=== PATIENT | female | born 1935 | race Two or more races ===

== ENCOUNTER 2019-12-10 22:40 | Inpatient (IN) | payer MEDICARE, OTHER ==
[~2019-12-10] VITALS: Ht 152.4 cm; Wt 62.1 kg
--- NOTE | 2019-12-10 22:50 | NUR ---
PT AAOX3. MARKO FROM [facility] FOR PSYCH EVAL. PT AMBULATORY WITH STEADY GAIT. PER PA WAS TOLD PT WAS WONDERING AROUND. PLACED IN GOWN, ON MONITOR , AND PULSE OX. VSS. NO ACUTE DISTRESS NOTED. AWAITING MD FOR EVAL.
--- NOTE | 2019-12-10 23:08 | NUR ---
PATIENT CAME TO ER FROM [facility] FOR PSYCH EVALUATION. PATIENT IS AAOX2. NO SOB. BREATHING EVENLY AND UNLABORED ON ROOM AIR. CONNECTED TO MONITOR.
--- NOTE | 2019-12-10 23:16 | NUR ---
HEAD OF HUMAN RESOURCES AT BEDSIDE FOR LABS AND URINE.
[2019-12-10 23:17] LABS: BASOPHILS # (AUTO) 0.1 /CMM (0.0-0.2); BASOPHILS % (AUTO) 0.9 % (0.0-2.0); EOSINOPHILS % (AUTO) 1.7 % (0.0-6.0); HEMATOCRIT 30 % (33-45); HEMOGLOBIN 10.4 g/dL (11.5-14.8); LYMPHOCYTES # (AUTO) 1.3 /CMM (0.8-4.8); LYMPHOCYTES % (AUTO) 21.5 % (20.0-44.0); MEAN CORPUSCULAR HGB CONC 34 g/dl (31.0-36.0); MEAN CORPUSCULAR VOLUME 94 fL (82-100); MONOCYTES # (AUTO) 0.6 /CMM (0.1-1.30); MONOCYTES % (AUTO) 10.1 % (2.0-12.0); NEUTROPHILS % (AUTO) 65.8 % (43.0-81.0); PLATELET COUNT (AUTO) 156 /CMM (150-450); RED BLOOD CELL COUNT(AUTO) 3.23 MIL/uL (4.0-5.2)
[2019-12-10 23:20] LABS: APPEARANCE,URINE Clear (CLEAR); BILIRUBIN,URINE Negative (NEGATIVE); BLOOD, URINE Trace-intact Ery/uL (NEGATIVE); COLOR,URINE Yellow (YELLOW); KETONES,URINE Negative (NEGATIVE); LEUKOCYTE ESTERASE ,URINE Negative (NEGATIVE); NITRITE, URINE Negative (NEGATIVE); PROTEIN,URINE >=300 mg/dl (NEGATIVE); UGLUCOSE 100 MG/DL mg/dL (NEGATIVE)
[2019-12-10 23:26] LABS: CALCIUM, SERUM 8.9 mg/dL (8.5-10.1); CARBON DIOXIDE 28 mmol/L (21-32); CHLORIDE 101 mmol/L (98-107); GLUCOSE 110 mg/dL (74-106); POTASSIUM 4.7 mmol/L (3.5-5.1); SODIUM SERUM 136 mmol/L (136-145); UREA NITROGEN, BLOOD 27 mg/dL (7-18)
[2019-12-10 23:31] LABS: ACETAMINOPHEN 3 ug/ml (10-30); ALANINE AMINOTRANSFERASE 26 U/L (12-78); ALBUMIN 2.7 g/dL (3.4-5.0); ALCOHOL, BLOOD < 3 mg/dL (0-0); ALKALINE PHOSPHATASE 60 U/L (46-116); ASPARTATE AMINOTRANSFERASE 32 U/L (15-37); BILIRUBIN,DIRECT 0.1 mg/dL (0.0-0.2); BILIRUBIN,TOTAL 0.3 mg/dL (0.2-1.0); TOTAL PROTEIN, SERUM 5.8 g/dL (6.4-8.2)
[2019-12-10 23:32] LABS: SALICYLATE 0.6 mg/dL (2.8-20.0)
[2019-12-10 23:34] LABS: BACTERIA,URINE Few /HPF (None Seen); RBC,URINE 0-2 /HPF (0-2); SQUAMOUS EPITHELIAL CELL,UR Few /HPF (None Seen)
[2019-12-10] MEDS ORDERED: SENN-261 PO (23:55)
[2019-12-10] MEDS ORDERED: FURO20TA4 PO (23:55)
[2019-12-10] MEDS ORDERED: TRAZ-182 PO (23:55)
[2019-12-10] MEDS ORDERED: APIX2.5T PO (23:55)
[2019-12-10] MEDS ORDERED: DIPH50CA4 PO (23:55)
[2019-12-10] MEDS ORDERED: OMEP40CA13 PO (23:55)
[2019-12-10] MEDS ORDERED: MULT1TAB73 PO (23:55)
[2019-12-10] MEDS ORDERED: DOCU100C36 PO (23:55)
[2019-12-10] MEDS ORDERED: ISOS60TA4 PO (23:55)
[2019-12-10] MEDS ORDERED: SITA50TA PO (23:55)
[2019-12-10] MEDS ORDERED: FOLI5VIA2 PO (23:55)
[2019-12-10] MEDS ORDERED: CHOL500062 PO (23:55)
[2019-12-10] MEDS ORDERED: SPIR25TA6 PO (23:55)
[2019-12-10] MEDS ORDERED: CARV25TA2 PO (23:55)
[2019-12-10] MEDS ORDERED: SUCR1TAB PO (23:55)
[2019-12-10] MEDS ORDERED: MAGN400T8 PO (23:55)
[2019-12-10] MEDS ORDERED: FAMO20TA8 PO (23:55)
--- NOTE | 2019-12-10 23:56 | NUR ---
Patient is resting comfortably in bed. Easily aroused. VSS.
--- NOTE | 2019-12-11 00:02 | NUR ---
CALLED ART DRIFT MINER FOR EVALUATION
[2019-12-11] MEDS ORDERED: CLONIDINE HCL 0.1 MG TABLET ONE (00:21)
--- NOTE | 2019-12-11 00:35 | NUR ---
ART CUSTOMER COMPLAINT CLERK AT BEDSIDE
[2019-12-11] MEDS ORDERED: CLONIDINE HCL 0.1 MG TABLET PO ONE (01:00)
--- NOTE | 2019-12-11 02:33 | NUR ---
PATIENT IS ASLEEP. EASILY AROUSABLE THROUGH TACTILE AND VERBAL STIMULI. BREATHING EVENLY AND UNLABORED ON ROOM AIR. CONNECTED TO MONITOR. SITTER AT BEDSIDE.
--- NOTE | 2019-12-11 04:25 | NUR ---
Monique tovar in EDM - 12/11/19 at 0647 by TRENT ACCEPTED BY DR. ROBERT KHAN MD, DR. JULISA GUNDERSON MD #[phone] EXT. [phone] LOOK FOR CHARGE NURSE BELEM
--- NOTE | 2019-12-11 05:46 | NUR ---
NOTED HYPERTENSION. AWARE
[2019-12-11] MEDS ORDERED: hydrALAZINE HCL 50 MG TABLET ONE (06:04)
--- NOTE | 2019-12-11 06:19 | NUR ---
REPORT GIVEN TO NURSE FOR GERMAN
[2019-12-11] MEDS ORDERED: hydrALAZINE HCL 50 MG TABLET PO SCH (06:30)
--- NOTE | 2019-12-11 06:44 | NUR ---
RECEIVED THIS 84 FEMALE FROM ER. PATIENT WAS PUT ON HOLD DUE TO GRAVELY DISABLE, WONDERING AROUND AT [facility] . PATIENT IS ALERT, ORIENTED X3 ON FACE TO FACE ASSESSMENT PATIENT DENIES ANY SI/HI AT THIS TIME, VITAL SIGN STABLE ON ROOM AIR SKIN IS INTACT PATENT . SIDE RAILS ARE UP FOR SAFETY, WILL GIVE REPORT TO ON COMING NURSE TO FINISH THE ADMISSIONS AND CONTINUES OF CARE.
[2019-12-11] MEDS ORDERED: MAG HYDROX/AL HYDROX/SIMETH 30 ML UDC PO PRN (07:00)
[2019-12-11] MEDS ORDERED: ACETAMINOPHEN 325 MG TABLET PO PRN (07:00)
[2019-12-11] MEDS ORDERED: MAGNESIUM HYDROXIDE 30 ML UDC PO PRN (07:00)
[2019-12-11] MEDS ORDERED: TEMAZEPAM 7.5 MG CAPSULE PO PRN (07:00)
[2019-12-11] MEDS ORDERED: BLOOD SUGAR DIAGNOSTIC 1 EACH STRIP IN ONE (07:00)
[2019-12-11] MEDS ORDERED: LORAZEPAM 0.5 MG TABLET PO PRN (07:00)
[2019-12-11 08:00] VITALS: BP 142/54
--- NOTE | 2019-12-11 08:00 | NUR ---
GPS/RN-NOTES RECEIVED PATIENT LAYING IN BED AWAKE,ALERT TO NAME ONLY CALM ,NO ACUTE DISTRESS NOTED. PATIENT COOPERATIVE DURING FACE TO FACE INTERVIEW. PATIENT AMBULATORY STEADY GAIT. CALLED SON KAMILAH MENJIVAR @ [phone] AND MADE AWARE OF THE ADMISSION.PATIENT WAS ORIENTED IN THE UNIT AND UNIT POLICIES. CONTRABAND DONE . ALL NEEDS ATTENDED AND ANTICIPATED. WILL CONT. MONITORING Q15 MINS. FOR SAFETY AND BEHAVIOR.
--- NOTE | 2019-12-11 10:30 | NUR ---
GPS/RN-NOTES GENETIC TECHNOLOGIST HERRERA MADE AWARE OF PATIENT ADMISSION AND AWARE OF MEDICATIONS NEED TO RECONCILE.
--- NOTE | 2019-12-11 11:10 | NUR ---
FACILITY CONTACT: SW contacted [facility] Address: [address] [place] [address] and spoke with Forest wishkicker ashley who stated pt is able to return once stable for discharge.
--- NOTE | 2019-12-11 13:29 | NUR ---
FAMILY CONTACT: SW contacted pts son Derek [phone] for collateral information and discharge/treatment planning. Son states that pt has been having paranoid delusions about her neighbors wanting to kill her for a few weeks now and states that 4 days ago she was put on Abilify but it has not worked. He states that pt has a neighbor who is heard of hearing and he listens to the TV very loudly and states pt believes that he is talking abut her and plotting to harm her. Son states that pt sees Dr. Deepak Vale Address: [address], [place] [address] as her primary care physician and pt recently began seeing Dr. Jenkins at [facility] Address: [address], [place] [address] who prescribed her with Abilify. Son states he wishes to speak to the psychiatrist to see if there is an alternative medication he can give pt that works faster than Abilify. Son states that he wishes for pt to return to [facility] Address: [address] [place] [address] .
[2019-12-11 16:00] VITALS: BP 152/92
--- NOTE | 2019-12-11 18:53 | NUR ---
GPS/RN-NOTES PATIENT SLEEPING AT THIS TIME,NO ACUTE DISTRESS NOTED. NEED URINE COLLECTION FOR URINALYSIS. WILL ENDORSE TO INCOMING NURSE FOR COLLECTION AND CONTINUITY OF CARE.
--- NOTE | 2019-12-11 19:56 | NUR ---
Patient in bed, awake, alert and oriented. Received report about urine collection. STRATEGIC ANALYST informed. Will continue to monitor.
[2019-12-11 20:28] VITALS: BP 142/68
[2019-12-11] MEDS: RIVASTIGMINE TARTRATE 1.5 MG CAPSULE PO SCH (21:13)
[2019-12-11] MEDS: risperiDONE 0.25 MG TABLET PO SCH (21:13)
[2019-12-11] MEDS: SUCRALFATE 1 G TABLET PO SCH (21:13)
[2019-12-12 07:03] LABS: BASOPHILS % (AUTO) 0.8 % (0.0-2.0); EOSINOPHILS % (AUTO) 1.9 % (0.0-6.0); HEMATOCRIT 29 % (33-45); HEMOGLOBIN 10.3 g/dL (11.5-14.8); LYMPHOCYTES # (AUTO) 0.9 /CMM (0.8-4.8); LYMPHOCYTES % (AUTO) 16.3 % (20.0-44.0); MEAN CORPUSCULAR HGB CONC 35 g/dl (31.0-36.0); MEAN CORPUSCULAR VOLUME 93 fL (82-100); MONOCYTES # (AUTO) 0.5 /CMM (0.1-1.30); MONOCYTES % (AUTO) 9.5 % (2.0-12.0); NEUTROPHILS # (AUTO) 3.9 /CMM (1.8-8.9); NEUTROPHILS % (AUTO) 71.5 % (43.0-81.0); PLATELET COUNT (AUTO) 131 /CMM (150-450); RED BLOOD CELL COUNT(AUTO) 3.13 MIL/uL (4.0-5.2); WHITE BLOOD COUNT (AUTO) 5.5 K/uL (4.3-11.0)
[2019-12-12 07:10] LABS: ALANINE AMINOTRANSFERASE 23 U/L (12-78); ALBUMIN 2.2 g/dL (3.4-5.0); ALKALINE PHOSPHATASE 43 U/L (46-116); ASPARTATE AMINOTRANSFERASE 31 U/L (15-37); BILIRUBIN,TOTAL 0.3 mg/dL (0.2-1.0); CALCIUM, SERUM 8.9 mg/dL (8.5-10.1); CARBON DIOXIDE 28 mmol/L (21-32); CHLORIDE 106 mmol/L (98-107); CREATININE 1.4 mg/dL (0.6-1.3); GLUCOSE 91 mg/dL (74-106); MAGNESIUM 2.1 mg/dL (1.8-2.4); PHOSPHORUS 3.6 mg/dL (2.5-4.9); SODIUM SERUM 140 mmol/L (136-145); UREA NITROGEN, BLOOD 25 mg/dL (7-18)
[2019-12-12 07:13] LABS: CHOLESTEROL 188 mg/dL (<200); CREATINE KINASE, TOTAL 153 U/L (26-192); HDL CHOLESTEROL 64 mg/dL (40-60); LDL 96 mg/dL (0-99); TRIGLYCERIDES 202 mg/dL (30-150)
[2019-12-12 08:00] VITALS: BP 147/55
[2019-12-12] MEDS: APIXABAN 2.5 MG TABLET PO SCH ×2 (08:54→16:21)
[2019-12-12] MEDS: CHOLECALCIFEROL 1,000 UNIT TABLET (VIT D3) PO SCH (08:54)
[2019-12-12] MEDS: RIVASTIGMINE TARTRATE 1.5 MG CAPSULE PO SCH ×2 (08:54→20:32)
[2019-12-12] MEDS: SPIRONOLACTONE 25 MG TABLET PO SCH (08:54)
[2019-12-12] MEDS: SENNOSIDES 8.6 MG TABLET PO SCH ×2 (08:55→16:20)
[2019-12-12] MEDS: DOCUSATE SODIUM 100 MG CAPSULE PO SCH ×2 (08:55→16:21)
[2019-12-12] MEDS: MULTIVITAMINS,THERAGRAN 1 UDTAB TABLET PO SCH (08:55)
[2019-12-12] MEDS: FUROSEMIDE 20 MG TABLET PO SCH ×2 (08:55→16:20)
[2019-12-12] MEDS: CARVEDILOL 12.5 MG TABLET PO SCH ×2 (08:55→16:21)
[2019-12-12] MEDS: MAGNESIUM OXIDE 400 MG TABLET PO SCH (08:55)
[2019-12-12] MEDS: FOLIC ACID 1 MG TABLET PO SCH (08:55)
[2019-12-12] MEDS: LINAGLIPTIN 5 MG TABLET PO SCH (08:55)
[2019-12-12] MEDS: SUCRALFATE 1 G TABLET PO SCH ×4 (08:55→20:32)
[2019-12-12] MEDS: risperiDONE 0.25 MG TABLET PO SCH ×2 (08:55→20:32)
[2019-12-12] MEDS: ISOSORBIDE MONONITRATE (30MG) 30 MG TAB.SR.24H PO SCH ×2 (08:55→16:20)
[2019-12-12] MEDS: PANTOPRAZOLE 40 MG TABLET.DR PO SCH (08:57)
[2019-12-12] MEDS ORDERED: FAMOTIDINE (20 MG) 20 MG TABLET PO SCH (09:00)
--- NOTE | 2019-12-12 09:20 | NUR ---
INITIAL DISCHARGE PLAN: Pt will return to [facility] Address: [address] [place] [address] . CORI spoke with Forest urturn who stated pt is able to return once stable for discharge. Per son Derek ([phone]) he wishes for pt to return to [facility]. CORI will help form a safe and proper discharge in collaboration with .
--- NOTE | 2019-12-12 10:42 | NUR ---
PCP CONTACT: CORI received a kate from Dr. Vale [phone] stating that before pt was admitted into [facility] she was at [facility], he states that [facility] has accepted to take pt back so long as she is hospitalized for at least 7 days with a negative COVID-19 test. CORI returned the call and left a voicemail for callback to discuss pts discharge plan.
--- NOTE | 2019-12-12 10:57 | NUR ---
SNF REFERRAL: faxed referral to [facility] ([facility]) [address] [place] [address] P: [phone] for review.
--- NOTE | 2019-12-12 11:15 | NUR ---
PCP CONTACT: SW received a call from Dr. Vale [phone] stating that he spoke with CARLOS Odom at [facility] who confirmed they would take pt, however are not sure when they will be able to accept new pts due to current COVID-19 restrictions. SW stated she would follow up with facility regarding bed availability.
--- NOTE | 2019-12-12 11:41 | NUR ---
Home Health Contact: SW received a call from [facility] ([phone]) from [facility] who stated that they will continue services for the pt upon discharge. She asked for pts information to be faxed to [phone] at the time of discharge.
--- NOTE | 2019-12-12 11:50 | NUR ---
SNF REFERRAL: SW received a call from Mitesh, rehabilitation program coordinator at [facility] ([facility]) [address] [place] [address] P: [phone] stating that pt has been accepted to the facility but is unsure of when a bed will be available.
--- NOTE | 2019-12-12 14:39 | NUR ---
INDIVIDUAL COUNSELING: SW attempted to meet with pt to discuss her fears and paranoid delusions. Pt began crying stating she did not want to return to the assisted living due to the neighbors trying to kill her. SW informed her that pt has been accepted at [facility] and pts affect became happier. Pt then stated that she was thankful and happy that SW was helping her.
[2019-12-12] MEDS: hydrALAZINE HCL 25 MG TABLET PO PRN (15:38)
[2019-12-12 16:00] VITALS: BP 160/70
[2019-12-12 17:02] VITALS: BP 135/71
[2019-12-12 20:31] VITALS: BP 157/67
[2019-12-13 05:06] LABS: PTH, INTACT 59 pg/mL (15-65)
[2019-12-13 08:00] VITALS: BP 152/80
[2019-12-13 08:06] LABS: *SPE ALBUMIN 2.2 g/dL (2.9-4.4); *SPE ALPHA-1-GLOBULIN 0.2 g/dL (0.0-0.4); *SPE ALPHA-2-GLOBULIN 0.8 g/dL (0.4-1.0); *SPE BETA GLOBULIN 0.7 g/dL (0.7-1.3); *SPE GLOBULIN, TOTAL 2.1 g/dL (2.2-3.9); *SPE M-SPIKE Not Observed g/dL (Not Observed); *SPEGAMMA GLOBULIN 0.4 g/dL (0.4-1.8)
[2019-12-13] MEDS: CHOLECALCIFEROL 1,000 UNIT TABLET (VIT D3) PO SCH (08:48)
[2019-12-13] MEDS: FOLIC ACID 1 MG TABLET PO SCH (08:48)
[2019-12-13] MEDS: LINAGLIPTIN 5 MG TABLET PO SCH (08:48)
[2019-12-13] MEDS: PANTOPRAZOLE 40 MG TABLET.DR PO SCH (08:48)
[2019-12-13] MEDS: RIVASTIGMINE TARTRATE 1.5 MG CAPSULE PO SCH ×2 (08:48→20:40)
[2019-12-13] MEDS: SENNOSIDES 8.6 MG TABLET PO SCH ×2 (08:48→16:29)
[2019-12-13] MEDS: DOCUSATE SODIUM 100 MG CAPSULE PO SCH ×2 (08:48→16:29)
[2019-12-13] MEDS: SPIRONOLACTONE 25 MG TABLET PO SCH (08:49)
[2019-12-13] MEDS: MULTIVITAMINS,THERAGRAN 1 UDTAB TABLET PO SCH (08:49)
[2019-12-13] MEDS: risperiDONE 0.25 MG TABLET PO SCH ×2 (08:49→20:21)
[2019-12-13] MEDS: FUROSEMIDE 20 MG TABLET PO SCH ×2 (08:49→16:29)
[2019-12-13] MEDS: MAGNESIUM OXIDE 400 MG TABLET PO SCH (08:49)
[2019-12-13] MEDS: SUCRALFATE 1 G TABLET PO SCH ×4 (08:49→20:21)
[2019-12-13] MEDS: CARVEDILOL 12.5 MG TABLET PO SCH ×2 (08:50→16:29)
[2019-12-13] MEDS: ISOSORBIDE MONONITRATE (30MG) 30 MG TAB.SR.24H PO SCH ×2 (08:51→16:30)
[2019-12-13] MEDS: APIXABAN 2.5 MG TABLET PO SCH ×2 (08:52→16:20)
[2019-12-13 15:56] VITALS: BP 182/62
[2019-12-13] MEDS: hydrALAZINE HCL 25 MG TABLET PO PRN ×2 (16:31→23:49)
[2019-12-13 18:41] VITALS: BP 164/77
[2019-12-13 20:00] VITALS: BP 195/62
[2019-12-13 20:11] VITALS: BP 195/62
[2019-12-13] MEDS ORDERED: CLONIDINE HCL 0.1 MG TABLET PO PRN (21:00)
[2019-12-13 21:56] VITALS: BP 168/64
[2019-12-14 03:33] VITALS: BP 147/56
--- NOTE | 2019-12-14 06:11 | NUR ---
RN NOTES PATIENT REFUSED URINE COLLECTION, EXPLAINED TO PATIENT RATIONALE, PATIENT STILL REFUSED
[2019-12-14 08:00] VITALS: BP 161/60
[2019-12-14] MEDS: FOLIC ACID 1 MG TABLET PO SCH (08:36)
[2019-12-14] MEDS: MULTIVITAMINS,THERAGRAN 1 UDTAB TABLET PO SCH (08:36)
[2019-12-14] MEDS: SUCRALFATE 1 G TABLET PO SCH ×4 (08:36→21:25)
[2019-12-14] MEDS: SENNOSIDES 8.6 MG TABLET PO SCH ×2 (08:36→16:33)
[2019-12-14] MEDS: CHOLECALCIFEROL 1,000 UNIT TABLET (VIT D3) PO SCH (08:36)
[2019-12-14] MEDS: FUROSEMIDE 20 MG TABLET PO SCH ×2 (08:37→16:33)
[2019-12-14] MEDS: PANTOPRAZOLE 40 MG TABLET.DR PO SCH (08:37)
[2019-12-14] MEDS: MAGNESIUM OXIDE 400 MG TABLET PO SCH (08:37)
[2019-12-14] MEDS: SPIRONOLACTONE 25 MG TABLET PO SCH (08:37)
[2019-12-14] MEDS: LINAGLIPTIN 5 MG TABLET PO SCH (08:37)
[2019-12-14] MEDS: ISOSORBIDE MONONITRATE (30MG) 30 MG TAB.SR.24H PO SCH ×2 (08:37→16:34)
[2019-12-14] MEDS: DOCUSATE SODIUM 100 MG CAPSULE PO SCH ×2 (08:37→16:33)
[2019-12-14] MEDS: RIVASTIGMINE TARTRATE 1.5 MG CAPSULE PO SCH ×2 (08:37→21:24)
[2019-12-14] MEDS: CARVEDILOL 12.5 MG TABLET PO SCH ×2 (08:38→16:33)
[2019-12-14] MEDS: risperiDONE 0.25 MG TABLET PO SCH (08:39)
[2019-12-14] MEDS: APIXABAN 2.5 MG TABLET PO SCH ×2 (08:40→16:32)
[2019-12-14 16:00] VITALS: BP 139/64
[2019-12-14 20:00] VITALS: BP 195/60
[2019-12-14] MEDS: hydrALAZINE HCL 25 MG TABLET PO PRN (20:37)
--- NOTE | 2019-12-14 21:20 | NUR ---
GPS RN NOTES: RECHECKED PTS BLOOD PRESSURE AND HR WITH RESULTS 157/54, HR 66, OXY 97%, RESP 18, TEMPT. 98.8. NO S/S OF PAIN AT THIS TIME. BREATHING EVEN AND UNLABORED. CONTINUE TO MONITOR. Addendum: 12/14/19 at 2346 by PRIYA MAY RN BP 154/54, HR 66, OXY 97% ROOM AIR, RESP 18, TEMP 98.8
[2019-12-14 21:22] VITALS: BP 154/54
[2019-12-14] MEDS: risperiDONE 1 MG TABLET PO SCH (22:03)
[2019-12-15 06:43] LABS: BASOPHILS % (AUTO) 0.9 % (0.0-2.0); EOSINOPHILS % (AUTO) 2.6 % (0.0-6.0); HEMATOCRIT 27 % (33-45); HEMOGLOBIN 9.2 g/dL (11.5-14.8); LYMPHOCYTES % (AUTO) 20.2 % (20.0-44.0); MEAN CORPUSCULAR HGB CONC 35 g/dl (31.0-36.0); MEAN CORPUSCULAR VOLUME 92 fL (82-100); MONOCYTES # (AUTO) 0.6 /CMM (0.1-1.30); MONOCYTES % (AUTO) 11.2 % (2.0-12.0); NEUTROPHILS # (AUTO) 3.3 /CMM (1.8-8.9); NEUTROPHILS % (AUTO) 65.1 % (43.0-81.0); PLATELET COUNT (AUTO) 112 /CMM (150-450); RED BLOOD CELL COUNT(AUTO) 2.89 MIL/uL (4.0-5.2); WHITE BLOOD COUNT (AUTO) 5.1 K/uL (4.3-11.0)
[2019-12-15 07:02] LABS: CALCIUM, SERUM 8.2 mg/dL (8.5-10.1); CARBON DIOXIDE 26 mmol/L (21-32); CHLORIDE 105 mmol/L (98-107); CREATININE 1.4 mg/dL (0.6-1.3); GLUCOSE 97 mg/dL (74-106); MAGNESIUM 1.7 mg/dL (1.8-2.4); PHOSPHORUS 4.6 mg/dL (2.5-4.9); POTASSIUM 3.8 mmol/L (3.5-5.1); SODIUM SERUM 137 mmol/L (136-145); UREA NITROGEN, BLOOD 31 mg/dL (7-18)
[2019-12-15 08:00] VITALS: BP 153/76
[2019-12-15] MEDS: APIXABAN 2.5 MG TABLET PO SCH ×2 (08:09→17:12)
[2019-12-15] MEDS: MAGNESIUM OXIDE 400 MG TABLET PO SCH (08:10)
[2019-12-15] MEDS: risperiDONE 0.25 MG TABLET PO SCH (08:11)
[2019-12-15] MEDS: PANTOPRAZOLE 40 MG TABLET.DR PO SCH (08:11)
[2019-12-15] MEDS: DOCUSATE SODIUM 100 MG CAPSULE PO SCH ×2 (08:11→17:12)
[2019-12-15] MEDS: CHOLECALCIFEROL 1,000 UNIT TABLET (VIT D3) PO SCH (08:11)
[2019-12-15] MEDS: RIVASTIGMINE TARTRATE 1.5 MG CAPSULE PO SCH ×2 (08:11→20:28)
[2019-12-15] MEDS: LINAGLIPTIN 5 MG TABLET PO SCH (08:14)
[2019-12-15] MEDS: ISOSORBIDE MONONITRATE (30MG) 30 MG TAB.SR.24H PO SCH ×2 (08:14→17:08)
[2019-12-15] MEDS: CARVEDILOL 12.5 MG TABLET PO SCH ×2 (08:15→17:08)
[2019-12-15] MEDS: FOLIC ACID 1 MG TABLET PO SCH (08:15)
[2019-12-15] MEDS: SPIRONOLACTONE 25 MG TABLET PO SCH (08:15)
[2019-12-15] MEDS: MULTIVITAMINS,THERAGRAN 1 UDTAB TABLET PO SCH (08:15)
[2019-12-15] MEDS: FUROSEMIDE 20 MG TABLET PO SCH ×2 (08:16→17:12)
[2019-12-15] MEDS: SUCRALFATE 1 G TABLET PO SCH ×4 (08:16→20:28)
[2019-12-15] MEDS: SENNOSIDES 8.6 MG TABLET PO SCH ×2 (08:16→17:14)
--- NOTE | 2019-12-15 09:51 | NUR ---
GPS RN NOTE: PATIENT IN BED LYING AWAKE, COMPLIANT WITH MEDICATIONS NO S/S DISTRESS NOTED PT CALM NO ACUTE DISTRESS NOTED. ALL NEEDS ATTENDED AND ANTICIPATED. WILL CONTINUE MONITORING Q15 MINS. FOR SAFETY AND BEHAVIOR.
[2019-12-15] MEDS ORDERED: MAGNESIUM OXIDE 400 MG TABLET PO ONE (12:00)
[2019-12-15 16:00] VITALS: BP 147/72
[2019-12-15 20:29] VITALS: BP 138/62
[2019-12-15] MEDS: risperiDONE 1 MG TABLET PO SCH (21:19)
[2019-12-16 08:00] VITALS: BP 168/73
[2019-12-16] MEDS: ISOSORBIDE MONONITRATE (30MG) 30 MG TAB.SR.24H PO SCH ×2 (08:22→16:15)
[2019-12-16] MEDS: SENNOSIDES 8.6 MG TABLET PO SCH ×2 (08:22→16:15)
[2019-12-16] MEDS: FOLIC ACID 1 MG TABLET PO SCH (08:22)
[2019-12-16] MEDS: SUCRALFATE 1 G TABLET PO SCH ×4 (08:22→20:36)
[2019-12-16] MEDS: PANTOPRAZOLE 40 MG TABLET.DR PO SCH (08:22)
[2019-12-16] MEDS: CHOLECALCIFEROL 1,000 UNIT TABLET (VIT D3) PO SCH (08:22)
[2019-12-16] MEDS: MULTIVITAMINS,THERAGRAN 1 UDTAB TABLET PO SCH (08:22)
[2019-12-16] MEDS: FUROSEMIDE 20 MG TABLET PO SCH ×2 (08:23→16:15)
[2019-12-16] MEDS: MAGNESIUM OXIDE 400 MG TABLET PO SCH (08:23)
[2019-12-16] MEDS: SPIRONOLACTONE 25 MG TABLET PO SCH (08:23)
[2019-12-16] MEDS: CARVEDILOL 12.5 MG TABLET PO SCH ×2 (08:23→16:15)
[2019-12-16] MEDS: DOCUSATE SODIUM 100 MG CAPSULE PO SCH ×2 (08:23→16:15)
[2019-12-16] MEDS: RIVASTIGMINE TARTRATE 1.5 MG CAPSULE PO SCH ×2 (08:23→20:36)
[2019-12-16] MEDS: LINAGLIPTIN 5 MG TABLET PO SCH (08:23)
[2019-12-16] MEDS: risperiDONE 0.25 MG TABLET PO SCH (08:23)
[2019-12-16] MEDS: APIXABAN 2.5 MG TABLET PO SCH ×2 (08:24→16:16)
[2019-12-16 15:41] VITALS: BP 143/56
[2019-12-16 16:00] VITALS: BP 143/56
[2019-12-16 20:41] VITALS: BP 149/52
[2019-12-16] MEDS: risperiDONE 1 MG TABLET PO SCH (21:40)
[2019-12-17 08:00] VITALS: BP 153/76
[2019-12-17] MEDS: PANTOPRAZOLE 40 MG TABLET.DR PO SCH (08:20)
[2019-12-17] MEDS: SUCRALFATE 1 G TABLET PO SCH ×4 (08:20→21:43)
[2019-12-17] MEDS: CHOLECALCIFEROL 1,000 UNIT TABLET (VIT D3) PO SCH (08:20)
[2019-12-17] MEDS: FOLIC ACID 1 MG TABLET PO SCH (08:20)
[2019-12-17] MEDS: FUROSEMIDE 20 MG TABLET PO SCH ×2 (08:20→17:07)
[2019-12-17] MEDS: SPIRONOLACTONE 25 MG TABLET PO SCH (08:20)
[2019-12-17] MEDS: SENNOSIDES 8.6 MG TABLET PO SCH ×2 (08:20→17:07)
[2019-12-17] MEDS: MAGNESIUM OXIDE 400 MG TABLET PO SCH (08:20)
[2019-12-17] MEDS: MULTIVITAMINS,THERAGRAN 1 UDTAB TABLET PO SCH (08:20)
[2019-12-17] MEDS: RIVASTIGMINE TARTRATE 1.5 MG CAPSULE PO SCH ×2 (08:20→21:43)
[2019-12-17] MEDS: DOCUSATE SODIUM 100 MG CAPSULE PO SCH ×2 (08:20→17:07)
[2019-12-17] MEDS: risperiDONE 0.25 MG TABLET PO SCH (08:21)
[2019-12-17] MEDS: ISOSORBIDE MONONITRATE (30MG) 30 MG TAB.SR.24H PO SCH ×2 (08:21→17:06)
[2019-12-17] MEDS: LINAGLIPTIN 5 MG TABLET PO SCH (08:21)
[2019-12-17] MEDS: CARVEDILOL 12.5 MG TABLET PO SCH ×2 (08:22→17:07)
[2019-12-17] MEDS: APIXABAN 2.5 MG TABLET PO SCH ×2 (08:24→17:10)
--- NOTE | 2019-12-17 09:00 | NUR ---
RN NOTE- PT AWAKE IN BED ALERT ORIENTED TO PERSON PLACE TIME PURPOSE. MINOR CONFUSION REGARDING PURPOSE AND LENGTH OF STAY. PO INTAKE GOOD, MED COMPLIANT CALM DIRECTABLE DENIES SI HI AH VH
[2019-12-17] MEDS: hydrALAZINE HCL 25 MG TABLET PO SCH ×3 (10:11→17:07)
[2019-12-17 11:16] VITALS: BP 159/64
--- NOTE | 2019-12-17 11:20 | NUR ---
RN NOTE- ELEVATED BP TODAY. RECHECK AT 159/64 HR-78
[2019-12-17 13:16] VITALS: BP 198/50
--- NOTE | 2019-12-17 13:16 | NUR ---
RN NOTE- ELEVATED BP - 198/50 HR-65 HYDRALAZINE 25 MG GIVEN
--- NOTE | 2019-12-17 14:30 | NUR ---
INDIVIDUAL INTERVENTION: SW met with pt at bedside, Pt was laying in a position with depressed mood. SW addressed pts discharge plan and also isolation and withdrawal. Pt states that she is always cold and that is why she does not want to get up from bed. SW discussed the importance of attending group activities and socializing with peers. Pt refused and stated that she rather stay in bed. SW informed pt that her PCP has recommended for her to be discharged to [facility], pts mood became euphoric as she stated that she does not want to return to [facility] due to her being afraid to return. SW stated that she has been accepted to [facility] and that is where she will be placed. Pt thanked SW and stated that she felt better.
[2019-12-17 16:00] VITALS: BP 170/64
[2019-12-17 18:18] VITALS: BP 140/64
--- NOTE | 2019-12-17 18:18 | NUR ---
RN NOTE- ELEVATED BP RECHECK BP- 140/64 HR- 76
[2019-12-17 20:09] VITALS: BP 157/57
[2019-12-17] MEDS: risperiDONE 1 MG TABLET PO SCH (21:43)
[2019-12-18 08:00] VITALS: BP 158/83
--- NOTE | 2019-12-18 08:30 | NUR ---
SNF CONTACT: CORI Sagastume, sales appointment coordinator at [facility] ([facility]) [address] [place] [address] P: [phone] to inform him pt has a discharge order for this present day. He states that facility is unable to accept due to current restrictions.
--- NOTE | 2019-12-18 09:04 | NUR ---
PCP CONTACT: SW contacted Dr. Vale [phone] and left a voicemail informing him pt has a discharge order for this present day and also informed him that [facility] is unable to accept pt at this time due to COVID-19 restrictions. SW also stated that pt ramos snot want to return to [facility] due to being afraid.
--- NOTE | 2019-12-18 09:11 | NUR ---
FAMILY CONTACT: CORI contacted pts son Derek [phone] to inform him pt will be discharged on this present day. SW informed him that pt does not want to return to [facility] and that pts PCP wishes for pt to be discharged to a SNF. Son refused and stated that pt will return to [facility]. SW then stated that she will coordinate discharge with [facility] and son stated that he is unable to pick pt up on such short notice. CORI informed him that discharge was ordered this morning. SW will coordinate discharge with facility and son.
[2019-12-18] MEDS: SUCRALFATE 1 G TABLET PO SCH ×2 (09:15→13:00)
[2019-12-18] MEDS: MULTIVITAMINS,THERAGRAN 1 UDTAB TABLET PO SCH (09:15)
[2019-12-18] MEDS: ISOSORBIDE MONONITRATE (30MG) 30 MG TAB.SR.24H PO SCH (09:15)
[2019-12-18] MEDS: SENNOSIDES 8.6 MG TABLET PO SCH (09:15)
[2019-12-18] MEDS: SPIRONOLACTONE 25 MG TABLET PO SCH (09:16)
[2019-12-18] MEDS: FUROSEMIDE 20 MG TABLET PO SCH (09:16)
[2019-12-18] MEDS: PANTOPRAZOLE 40 MG TABLET.DR PO SCH (09:16)
[2019-12-18] MEDS: LINAGLIPTIN 5 MG TABLET PO SCH (09:16)
[2019-12-18] MEDS: CHOLECALCIFEROL 1,000 UNIT TABLET (VIT D3) PO SCH (09:16)
[2019-12-18] MEDS: FOLIC ACID 1 MG TABLET PO SCH (09:16)
[2019-12-18] MEDS: DOCUSATE SODIUM 100 MG CAPSULE PO SCH (09:17)
[2019-12-18] MEDS: CARVEDILOL 12.5 MG TABLET PO SCH (09:17)
[2019-12-18] MEDS: RIVASTIGMINE TARTRATE 1.5 MG CAPSULE PO SCH (09:17)
[2019-12-18] MEDS: risperiDONE 0.25 MG TABLET PO SCH (09:17)
[2019-12-18] MEDS: APIXABAN 2.5 MG TABLET PO SCH (09:20)
[2019-12-18] MEDS: MAGNESIUM OXIDE 400 MG TABLET PO SCH (09:25)
[2019-12-18] MEDS: hydrALAZINE HCL 25 MG TABLET PO SCH ×2 (09:25→12:57)
--- NOTE | 2019-12-18 09:25 | NUR ---
FACILITY CONTACT: SW contacted [facility] Address: [address] [place] [address] and spoke with Olayinka Teralynk ashley who states pt is able to return on this present and a charter and tour bus driver will be picking pt up at 1300.
--- NOTE | 2019-12-18 09:28 | NUR ---
FAMILY CONTACT: CORI contacted pts son Derek [phone] to inform him facility will be picking pt up at 1300. Son agreed.
--- NOTE | 2019-12-18 10:02 | NUR ---
DISCHARGE NOTE: Pt will be discharged at 1:00pm via facility transport to [facility] Address: [address] [place] [address] . Pts son Derek [phone] has been notified and agrees with discharge. Pts mood is euthymic with congruent affect. Pt denied visual/auditory hallucinations and denied suicidal/homicidal ideation. Pt will follow up with Psychiatrist: Dr. Brenton Lacey Address: [address] [address] and Travel Clerk: Dr. Deepak Vale Address: [address] [place] [address] . SW faxed pts medication and clinicals to MAVIS Morrell from [place] (P:[phone] F: [phone]). The multidisciplinary exit care form was done, printed, signed, and given to the patient.
--- NOTE | 2019-12-18 11:00 | NUR ---
rahul general labor forklift operator here and discharging pt.rxs to go to facility.
[2019-12-18 12:57] VITALS: BP 125/67
--- NOTE | 2019-12-18 13:00 | NUR ---
made ready for dc.papers signed.rxs included along with belonging sheet.pt. has been med compliant.taken to lobby via w/c accompanied by mortgage processing manager. pt. denies auditory and visual hallucinations as well as suicidal thoughts.
== END 2019-12-18 13:00 | DRG 885 ==
LOC: ER 22:42 → GPS 12-11 01:40
PROVIDERS: ADMIT Psychiatry & Neurology Psychiatry; ATTEND Nurse Practitioner Acute Care
DX: F29 Unspecified psychosis not due to a substance or known physiological condition (principal); F01.50 Vascular dementia, unspecified severity, without behavioral disturbance, psychotic disturbance, mood disturbance, and anxiety; N18.9 Chronic kidney disease, unspecified; N17.9 Acute kidney failure, unspecified; D68.59 Other primary thrombophilia; I48.91 Unspecified atrial fibrillation; E78.5 Hyperlipidemia, unspecified; F41.9 Anxiety disorder, unspecified; E03.9 Hypothyroidism, unspecified; I12.9 Hypertensive chronic kidney disease with stage 1 through stage 4 chronic kidney disease, or unspecified chronic kidney disease; D63.1 Anemia in chronic kidney disease; E11.22 Type 2 diabetes mellitus with diabetic chronic kidney disease; E11.21 Type 2 diabetes mellitus with diabetic nephropathy; Z79.01 Long term (current) use of anticoagulants; F25.0 Schizoaffective disorder, bipolar type; Z91.19 Patient's noncompliance with other medical treatment and regimen
CPT/HCPCS: 36415; 80048-TC; 80053-TC; 80061-TC; 80076-TC; 80305; 81000-TC; 82550-TC; 82962-TC; 83735-TC; 83970; 84100-TC; 84155; 84165; 85025-TC; 87081-TC; G0480